=== PATIENT | female | born 1975 | race Two or more races ===

== ENCOUNTER → 2020-06-27 08:16 | Outpatient (CLI) | payer OTHER ==
[~2020-06-27 08:16] MED LIST: LIPITO PO
== END | disposition home or self-care (01) ==
LOC: LAB 08:16 → RAD 08:16
PROVIDERS: ATTEND Specialist
DX: D50.8 Other iron deficiency anemias (principal); D68.8 Other specified coagulation defects; N39.0 Urinary tract infection, site not specified; E83.51 Hypocalcemia; E78.00 Pure hypercholesterolemia, unspecified; Z01.811 Encounter for preprocedural respiratory examination; R50.9 Fever, unspecified; E78.2 Mixed hyperlipidemia; E03.8 Other specified hypothyroidism; E55.9 Vitamin D deficiency, unspecified; Z00.00 Encounter for general adult medical examination without abnormal findings; K92.1 Melena; Z01.810 Encounter for preprocedural cardiovascular examination

== ENCOUNTER 2020-07-15 07:55 | Day surgery (SDC) | payer OTHER | END 2020-07-15 17:05 | disposition home or self-care (01) | LOC: CIR.AMB 07:55 | PROVIDERS: ATTEND Specialist | DX: D06.0 Carcinoma in situ of endocervix (principal); Z20.822 Contact with and (suspected) exposure to COVID-19 ==

== ENCOUNTER 2024-06-03 13:16 | Outpatient (CLI) | payer OTHER | END 2024-06-03 13:26 | disposition home or self-care (01) | LOC: MAMO-SONO 13:16 | PROVIDERS: ATTEND Specialist | DX: N63.0 Unspecified lump in unspecified breast (principal); Z12.31 Encounter for screening mammogram for malignant neoplasm of breast ==